=== PATIENT | female | born 1975 | race Caucasian/White ===

== ENCOUNTER 2017-06-08 18:17 | Emergency (ER) | payer BC, SELFPAY | END 2017-06-08 22:29 | disposition still patient (30) | PROVIDERS: Emergency Provider Emergency Medicine; Visit Provider Emergency Medicine | DX: J10.1 Influenza due to other identified influenza virus with other respiratory manifestations (principal); E87.6 Hypokalemia; R00.0 Tachycardia, unspecified | CPT/HCPCS: 71020; 80053; 80305; 81001; 83880; 84436; 84443; 84479; 84484; 84703; 85025; 85378; 87070; 87275; 87276; 87430; 87486; 87581; 87633; 87798; 93005; 96365; 96366; 96375; 99285; J2405 ==

== ENCOUNTER → 2017-06-26 14:59 | Outpatient (CLI) | payer BC, SELFPAY ==
--- NOTE | 2017-06-26 15:09 | CA_ITS ---
PROCEDURE: 2-D M-mode and color Doppler study INDICATIONS FOR THE TEST: Chest pain+ COPD Heart Murmur+ Tobacco Smoking Palpitations+ Fatigue Syncope Edema+ Hypertension Diabetes Mellitus Rheumatic Fever SOB KENDALL Obesity Hyperlipidemia Family History HD+ Additional History tachycardia PATIENT INFORMATION HEIGHT: 67 WEIGHT: 144 GENDER: Female B/P: 120/82 2-D/M-MODE INTERPRETATION: 2-D MEASUREMENTS OBSERVED VALUES IN CMS Right Ventricular Dimension (RVDd) 2.3 Interventricular Septum (Thickness)(IVsd) 0.7 Left Ventricular Internal Dimensions(LVIDd) 4.0 Left Ventricular Posterior Wall (Thickness)(LVPWd) 0.8 Aortic Root 2.6 Aortic Cusp Separation 2.0 Left Atrial Dimensions (LAD) 3.1 2D 1. Left atrium is normal size, left ventricle is normal size, there is no concentric left ventricular hypertrophy, visually estimated ejection fraction 55% with no obvious regional wall motion abnormality. 2. The right atrium and right ventricle are normal size and contractility. 3. The aortic mitral valve are minimally thickened. 4. The tricuspid valve is structurally normal. 5. The pulmonic valve is poorly visualized. 6. No significant pericardial effusion noted. DOPPLER INTERROGATION: Doppler interrogation of the aortic, mitral and tricuspid valve reveals presence of mild mitral and tricuspid regurgitation. Tricuspid regurgitant jet velocity is insufficient for calculation of the right ventricular systolic pressure, diastolic parameters are within normal range. CONCLUSION: 1. Normal left ventricular size, preserved left ventricular systolic function, visually estimated ejection fraction 55% with no obvious regional wall motion abnormality, diastolic parameters are within normal range. 2. Mild mitral and tricuspid regurgitation. 3. No significant pericardial effusion noted.
== END ==
PROVIDERS: Family Provider Family Medicine; PCP Family Medicine; Visit Provider Internal Medicine Cardiovascular Disease
DX: R00.0 Tachycardia, unspecified (principal)
CPT/HCPCS: 93306

== ENCOUNTER → 2018-07-08 16:23 | Outpatient (CLI) | payer BC, SELFPAY ==
--- NOTE | 2018-07-08 16:34 | XR_ITS ---
EXAM: XR lumbar spine min 4V HISTORY: ITS.REASON: ACUTE MIDLINE LOW BACK PAIN, LT SCIATICA ORDERING PHYSICIAN: Danielle Nicholas PATIENT AGE: 43 years COMPARISON: None FINDINGS: Normal alignment. No fracture or dislocation. No lytic or blastic change. No significant degenerative change. The disc spaces are preserved. There are left upper quadrant calcifications suggestive of renal calculus measuring 8 mm IMPRESSION: 1. Negative lumbar spine. 2. Left upper quadrant calcification consistent with nephrolithiasis which may be confirmed with CT
== END ==
PROVIDERS: PCP Nurse Practitioner Family; Visit Provider Nurse Practitioner Family
DX: M54.42 Lumbago with sciatica, left side (principal)
CPT/HCPCS: 72110

== ENCOUNTER → 2018-08-03 08:35 | Outpatient (CLI) | payer BC, SELFPAY ==
--- NOTE | 2018-08-03 08:44 | XR_ITS ---
XR hip LT 2-3V w/pelvis, XR femur LT 2V Ordering Physician: Deb Fink Patient Age: 43 years: Female HISTORY: ITS.REASON: LEFT HAMSTRING INJURY TECHNIQUE: LEFT FEMUR 2 view AP and lateral LEFT HIP: AP and frog-leg view AP PELVIS included COMPARISON :None of hip . Lumbar spine from June 2018 does include pelvis ====== LEFT FEMUR 2 view. AP and lateral views femur show no abnormality. Femur intact no fracture. No lesions. The 2 views of the knee included and reveal no prominent findings. Only question some borderline narrowing at the medial compartment. Show some borderline narrowing at the medial compartment ----IMPRESSION:---. Left femur intact./Negative ========= LEFT HIP: AP and frog-leg view AP and frog views of left hip appear intact. No fracture. No significant findings.. Joint spaces well-maintained. Small bone island noted at the left femoral head as well as roof of acetabulum account for small sclerotic focus in these regions. These appear to be small benign bone islands. Also note unchanged since the prior images of pelvis from July 08, 2018 . AP pelvis. Stable and intact with no acute findings. Sacrum intact. SI joints unremarkable. Iliac bones and pubis satisfactory. The hip joint spaces well-maintained and symmetric bilaterally. The femoral head normal contour and density bilaterally -----IMPRESSION---- Left Hip and Pelvis intact./... No significant findings =.
== END ==
PROVIDERS: PCP Nurse Practitioner Family; Visit Provider Nurse Practitioner Family
DX: S76.302A Unspecified injury of muscle, fascia and tendon of the posterior muscle group at thigh level, left thigh, initial encounter (principal); M25.552 Pain in left hip
CPT/HCPCS: 73502; 73552

== ENCOUNTER → 2020-05-02 14:21 | Outpatient (CLI) | payer BC, SELFPAY ==
--- NOTE | 2020-05-02 14:28 | CT_ITS ---
PROCEDURE: CT LUMBAR SPINE WO/W CON CLINICAL HISTORY: LOW BACK PAIN Low back pain, left leg numbness COMPARISON: No exams were available for comparison TECHNIQUE: Axial images obtained with sagittal and coronal reformats. All CT scans at the facility use one or more dose reduction, viz: automated exposure control, ma/kV adjustment per patient size (including targeted exams where dose is matched to indication, i.e. head), or iterative reconstruction technique. FINDINGS: Is normal alignment. No fracture or dislocation evident. There is mild lumbar curvature convex right. Minimal bulging disc L3-L4. Mild concentric bulging disc L4-5 with is eccentric toward the left with left lateral recess and foraminal narrowing. There is mild facet hypertrophy at this level. L5-S1: There is a moderate-sized left paracentral disc protrusion/herniation which is causing impingement upon the left S1 nerve root and the thecal sac on the left No enhancing lesions are evident. Incidental note is made of a right ovarian cyst measuring 3 cm also incidentally noted is a 7 mm stone in the upper pole of the left kidney with focal atrophy of the kidney distal to this region. IMPRESSION: 1. Moderate-sized left paracentral disc protrusion/herniation at L5-S1 with impingement upon the left S1 nerve root 2. Mild bulging disc at L4-5 eccentric toward the left and minimal bulging disc L3-L4. 3. 3 cm right ovarian cyst. 4. 7 mm stone upper pole left kidney with focal scarring peripheral to the stone Dictated by: Alex Alcantar MD 05/02/2020 15:48 Alex Alcantar MD in [facility] 05/02/2020 15:48
== END ==
PROVIDERS: PCP Family Medicine; Visit Provider Family Medicine
DX: M54.5 Low back pain (principal)
CPT/HCPCS: 72133; Q9967

== ENCOUNTER 2021-12-31 17:30 | Outpatient (RCR) | payer BC, SELFPAY | END 2021-12-31 17:35 | disposition home or self-care (01) | LOC: PT 17:30 | PROVIDERS: PCP Family Medicine; Visit Provider Neurological Surgery | DX: M54.16 Radiculopathy, lumbar region (principal) | CPT/HCPCS: 97010; 97012; 97014; 97110; 97163; G0283 ==

== ENCOUNTER 2024-05-17 12:00 | Outpatient (CLI) | payer BC, SELFPAY ==
[2024-05-17 12:38] LABS: Basophils # 0.2 K/mm3 (0-0.2); Basophils % 2.6 % (0.1-2.0); Eosinophils # 0.3 K/mm3 (0.0-0.4); Eosinophils % 3.5 % (0.1-12.0); Hematocrit 46.3 % (37.0-47.0); Hemoglobin 15.7 g/dL (12.2-16.2); Lymphocytes # 2.5 K/mm3 (0.7-4.5); Lymphocytes % 27.3 % (10-50); Mean Corpuscular HGB Conc 33.8 g/dL (31.8-35.4); Mean Corpuscular Hemoglobin 28.8 pg (27.0-31.2); Mean Platelet Volume 9.8 fl (7.4-10.4); Monocytes # 0.4 K/mm3 (0.1-1.0); Monocytes % 4.1 % (1.7-9.3); Neutrophils # 5.8 K/mm3 (1.8-7.8); Neutrophils % 62.5 % (37.0-80.0); Platelet Count 290 K/mm3 (142-424); Red Blood Count 5.45 M/mm3 (4.20-5.40); Red Cell Distribution Width 13.2 % (11.5-17.5); White Blood Count 9.3 K/mm3 (4.8-10.8)
[2024-05-17 13:04] LABS: Alanine Aminotransferase 35 U/L (12-78); Albumin Level 4.6 g/dl (3.5-5.0); Albumin/Globulin Ratio 1.6 (1.1-1.8); Alkaline Phosphatase 81 U/L (38-126); Aspartate Amino Transferase 33 U/L (14-36); Bilirubin,Total 0.4 mg/dl (0.2-1.3); Blood Urea Nitrogen 18 mg/dl (7-17); Calcium 10.1 mg/dl (8.4-10.2); Carbon Dioxide 33 mmol/L (22.0-30.0); Chloride 99 mmol/L (98-107); Estimated Glomerular Filt Rate 108 ml/min (>60); GFR (African American) 130 ML/MIN (>60); Globulin 2.9 g/dL (1.3-3.2); Glucose 94 mg/dl (74-100); Magnesium 1.9 mg/dl (1.6-2.3); Sodium 138 mmol/L (136-145); Total Protein,Serum 7.5 g/dl (6.3-8.2)
[2024-05-17 13:16] LABS: 25-OH Vitamin D, Total 48.1 ng/mL (30-100)
[2024-05-17 14:09] LABS: Vitamin B12 750 pg/mL (239-931)
[2024-05-17 14:41] LABS: Folate 6.39 ng/mL
[2024-05-18 08:21] LABS: FSH 6.6 mIU/mL (.); LH 4.6 mIU/mL (.); Testosterone,Total 9 ng/dL (4-50)
== END 2024-05-17 23:59 | disposition home or self-care (01) ==
LOC: LAB 12:01
PROVIDERS: PCP Family Medicine; Visit Provider Obstetrics & Gynecology
DX: N95.1 Menopausal and female climacteric states (principal); N93.9 Abnormal uterine and vaginal bleeding, unspecified
CPT/HCPCS: 36415; 80050; 80053; 82306; 82607; 82670; 82746; 83001; 83002; 83735; 84403; 84443; 85025

== ENCOUNTER 2024-08-01 07:37 | Outpatient (CLI) | payer BC, SELFPAY ==
--- NOTE | 2024-08-01 07:44 | US_ITS ---
PROCEDURE: US TRANSVAGINAL CLINICAL INDICATION: AUB COMPARISON: No exams were available for comparison FINDINGS: Transvaginal sonographic images of the pelvis were obtained. UTERUS: 9.7 cm x 6.5 cmx 4.8 cm anteverted with a combined endometrial thickness of 16.8mm. The endometrium appears in-homogeneous. Are 2 nabothian cysts in the cervix that measure 2.3 cm x 1.5 cm and 2.1 cm x 1.6 cm. LEFT OVARY: 3.0cmx2.7 cmx2.0cm with a volume of 8.4ml. There is a follicle in the left ovary measuring 1.7 cm x 1.0 cm x 1.6 cm RIGHT OVARY: 7.8 cmx 6.0cmx3.5 C with a volume of 67ml. There is a dominant follicle measuring 4.1 cm x 3.3 cm x 3.6 cm There is a 2nd smaller follicle measuring 2.1 cm x 2.9 cm x 1.5 cm Both ovaries are seen and appear normal. Doppler flow to both ovaries are seen. There is no fluid in the cul-de-sac. IMPRESSION: 1. Anteverted, bulky uterus normal in shape. The endometrium is thickened measuring 16.8 mm. Suggest endometrial sampling given her abnormal uterine bleeding. 2. There are 2 large nabothian cysts in the cervix. They both measure 2+ cm. 3. Left ovary is seen and appears normal. Has a follicle measuring 1.7 cm. 4. The right ovary is enlarged with 2 follicles. Follicle 1 measures 4.1 cm in follicle 2 measures 2.9 cm. 5. No fluid in the cul-de-sac. Dictated by: Oliver Conrad MD 08/01/2024 09:12 Oliver Conrad MD in [facility] 08/01/2024 09:12
== END 2024-08-01 23:59 | disposition home or self-care (01) ==
PROVIDERS: PCP Family Medicine; Visit Provider Obstetrics & Gynecology
DX: N93.9 Abnormal uterine and vaginal bleeding, unspecified (principal)
CPT/HCPCS: 76830